=== PATIENT | male | born 1960 | race Caucasian/White ===

== ENCOUNTER 2021-12-12 09:32 | Emergency (ER) | payer OTHER, SELFPAY ==
[2021-12-12 09:57] VITALS: BP 138/84; PULSE 67; RESP 18; TEMP 36.8; O2SAT 97; BMI 41.8
[2021-12-12 10:54] LABS: Appearance Urine Clear (Clear); Bilirubin Urine Negative (Negative); Blood Urine 1+ (Negative); Color Urine Yellow (Yellow); Glucose Urine Negative (Negative); Ketones Urine Negative (Negative); Leukocyte Esterase Urine Negative (Negative); Nitrite Urine Negative (Negative); Protein Urine Negative (Negative); Specific Gravity Urine 1.015 (1.000-1.030); Urobilinogen Urine 0.2 (0.2-1.0); pH Urine 5.5 (5.0-8.5)
[2021-12-12 11:04] LABS: RBC Urine 0-2 (0-2); Squamous Epithelial Cell Urine Few (None-Few); WBC Urine 0-2 (0-5)
--- NOTE | 2021-12-12 11:19 | CRLHL7_ITS ---
For Patients: As a result of the Century Cures Act, medical imaging exams and procedure reports are released immediately into your electronic medical record. You may view this report before your referring provider. If you have questions, please contact your health care provider. Indication: Right testicular tenderness. Technique: Ultrasound of the scrotum and contents. Sonographic kaye-scale images were obtained with spectral and color Doppler waveform and spectral waveform analysis of the testicles. Comparison: None. Findings: Bother testicles are normal in size and echotexture. No masses. No suspicious calcifications. Arterial and venous color Doppler blood flow and spectral waveforms are present in both testicles. Epididymis: Unremarkable bilaterally. Normal blood flow. Other: Small right-sided hydrocele. No sign of varicocele. Scrotal wall is normal. Mildly enlarged right inguinal lymph node present. Impression: Small right-sided hydrocele and a mildly enlarged right inguinal lymph node are present. Otherwise unremarkable exam. No sign of torsion or inflammation. Dictated by Bao Lockett MD @ 12/12/2021 12:58:57 PM (Electronically Signed)
--- NOTE | 2021-12-12 11:21 | ED.GENADULT ---
HPI - General Adult General Time Seen by Provider: 11:21 Date Seen: 12/12/21 Chief complaint: Flank Pain Stated complaint: Lower right side absominal pain Time Seen by Provider: 12/12/21 11:10 Source: patient Mode of arrival: ambulatory Limitations: no limitations History of Present Illness HPI narrative: Delonte is a 7-year-old male past medical history includes hypertension, depression, diabetes mellitus type 2 presents emerged department with I a private car with some right lower flank and testicular pain. Patient states he got up in Saturday morning and developed right testicle pain. patient states he has had a over the last 10 year, feels is worse with movement, denies any dysuria, hematuria, increased urinary frequency, denies any penile discharge. It continued throughout the day, worse with bending over, his bowel movements every 3 days, he does 3 constipation, he has not been taking anything for, Saturday evening he felt like he was flushed, having a fever. patient had hematuria in the past, treated for a Uti at that time. Denies any nausea vomiting, no history of any kidney stones in the past, no history of any testicular cancer in the family. The pain continued is a dull ache, called Clinic and instructed him to come to the emergency department. is not had any upper respiratory complaints, denies any chest pain or shortness of breath. pain is worse with ambulation. no other concerns at this time. Related Data Home Medications Medication Instructions Recorded Confirmed aspirin 81 mg capsule 81 mg PO DAILY 12/12/21 12/12/21 atorvastatin 40 mg tablet 40 mg PO 12/12/21 bupropion HCl 200 mg tablet,12 hr 200 mg PO 12/12/21 sustained-release lisinopril 20 1 tab 12/12/21 mg-hydrochlorothiazide 25 mg tablet metformin 1,000 mg tablet 1,000 mg 12/12/21 paroxetine HCl 40 mg tablet 40 mg PO 12/12/21 Allergies Allergy/AdvReac Type Severity Reaction Status Date / Time No Known Drug Allergies Allergy Verified 12/12/21 10:05 Review of Systems Status of ROS: Reports: 10 or more systems reviewed and unremarkable except as noted in History and below Exam Narrative: Exam Narrative: General: NAD, sitting comfortably HEENT: pupils equal round reactive to light, extraocular muscles intact neck: supple full range of motion Heart: NSR, S1S2 lungs: clear to auscultation bilateral abdomen: obese, bowel sounds present, minimal tenderness to the right flank muscle skeletal: mild right CVA tenderness genitourinary: tender to palpation the posterior scrotum in the area of the epididymis, testicle is soft no appreciable hydrocele or mass, no redness or warm. no appreciable inguinal hernia. cremaster reflex present, normal vertical lie bilaterally. no Prehn sign. neuro: alert awake and oriented x3 Const: Vital Signs, click to edit/add: Vital Signs - 24 hr 12/12/21 09:57 Temperature 98.3 F Pulse Rate [Right Pulse Oximeter] 67 Respiratory Rate 18 Blood Pressure [Ri ght Upper Arm] 138/84 Pulse Oximetry 97 Oxygen Delivery Me thod Room Air Course Course Hospital Course: 11:15 AM: AIDET perform, vitals are normal, workup will include urinalysis and urine culture, will obtain basic labs including CBC, CRP, CMP, will also obtain a US scrotum, patient wants nothing for pain at this time. differential diagnosis include but not limited to renal calculi, pyelonephritis, epididymitis, constipation as well as testicular torsion or testicular cancer. Reevaluation(s) Reevaluation #1: patient updated on the imaging, lab and urinalysis, results, imaging showed IMPRESSION: CT abdomen and pelvis without contrast: Punctate right intrarenal nonobstructing calculus. No ureteral calculus or hydronephrosis. Colonic diverticulosis without evidence of acute diverticulitis. Small hiatal hernia. No evidence of acute intra-abdominal process on this noncontrast CT. Small-moderate sized fat containing umbilical hernia. US Scrotum: Impression: Small right-sided hydrocele and a mildly enlarged right inguinal lymph node are present. Otherwise unremarkable exam. No sign of torsion or inflammation. Time: 13:17 Vital Signs Vital signs: Initial Vital Signs Temperature 98.3 F 12/12/21 09:57 Temperature Source Temporal Artery Scan 12/12/21 09:57 Pulse Rate 67 12/12/21 09:57 Pulse Rhythm 12/12/21 09:57 Respiratory Rate 18 12/12/21 09:57 Blood Pressure 138/84 12/12/21 09:57 Blood Pressure Mean 102 12/12/21 09:57 Blood Pressure Position Sitting 12/12/21 09:57 Pulse Oximetry 97 12/12/21 09:57 Oxygen Delivery Method 12/12/21 09:57 Vital Signs Temperature 98.3 F 12/12/21 09:57 Pulse Rate 67 12/12/21 09:57 Respiratory Rate 18 12/12/21 09:57 Blood Pressure 138/84 12/12/21 09:57 Pulse Oximetry 97 12/12/21 09:57 Oxygen Delivery Method 12/12/21 09:57 Temperature 98.3 F 12/12/21 09:57 Pulse Rate 67 12/12/21 09:57 Respiratory Rate 18 12/12/21 09:57 Blood Pressure 138/84 12/12/21 09:57 Pulse Oximetry 97 12/12/21 09:57 Oxygen Delivery Method 12/12/21 09:57 Medical Decision Making Lab Data Labs: Lab Results 12/12/21 12/12/21 12/12/21 Range/Units 10:41 12:17 12:17 WBC 7.04 (4.50-11.00) K/uL RBC 5.06 (4.30-5.90) m/uL Hgb 15.0 (13.5-17.5) gm/dL Hct 44.1 (37.0-53.0) % MCV 87 (80-100) fL MCH 30 (26-34) pg MCHC 34 (32-36) gm/dL RDW Coeff of Rebecca 13.0 (11.5-15.5) % Plt Count 250 (140-440) K/uL Neut % (Auto) 59.7 (42.0-72.0) % Lymph % (Auto) 27.8 (20-44) % [place] % (Auto) 10.8 (0.0-11.0) % Eos % (Auto) 1.1 (0.0-7.0) % Baso % (Auto) 0.3 (0.0-3.0) % Neut # (Auto) 4.20 (1.7-7.0) K/uL Lymph # (Auto) 1.96 (0.90-2.90) K/uL [place] # (Auto) 0.80 (0.00-0.90) K/UL Eos # (Auto) 0.08 (0.00-0.50) K/uL Baso # (Auto) 0.02 (0.00-0.30) K/uL Abs Immat Gran (auto) 0.02 (0.00-0.30) K/uL Sodium 138 (135-149) mmol/L Potassium 4.1 (3.6-5.1) mmol/L Chloride 101 (96-114) mmol/L Carbon Dioxide 28 (20-32) mmol/L BUN 16 (7-30) mg/dL Creatinine 1.1 (0.5-1.5) mg/dL Estimated Creat Clear 76.06 Estimated GFR 77 ml/min Glucose 87 (60-115) mg/dL Calcium 9.7 (8.4-10.6) mg/dL Total Bilirubin 0.6 (0.1-1.5) mg/dL AST 36 H (12-35) U/L ALT 45 (4-50) U/L Alkaline Phosphatase 84 (40-150) U/L C-Reactive Protein < 0.5 L (0.5-1.0) mg/dL Total Protein 7.9 (6.0-8.3) g/dL Albumin 4.7 (3.3-5.0) g/dL Urine Color Yellow (Yellow) Urine Appearance Clear (Clear) Urine pH 5.5 (5.0-8.5) Ur Specific [place] 1.015 (1.000-1.030) Urine Protein Negative (Negative) Urine Glucose (UA) Negative (Negative) Urine Ketones Negative (Negative) Urine Blood 1+ A (Negative) Urine Nitrite Negative (Negative) Urine Bilirubin Negative (Negative) Urine Urobilinogen 0.2 (0.2-1.0) Ur Leukocyte Esterase Negative (Negative) Urine RBC 0-2 (0-2) Urine WBC 0-2 (0-5) Ur Squamous Epith Cells Few (None-Few) Urine Bacteria None (None) Discharge Plan Discharge Clinical Impression: Inguinal adenopathy, Hydrocele, right Patient Disposition: Home, Self-Care Condition: Improved Instructions: Hydrocele (ED) Additional Instructions: To continue with Motrin 400-600 mg every 4-6 hours, Tylenol 1000 mg every 4-6 hours, extra scotal support as well, to follow up with primary care provider in the next 7-10 days. Activity Level: Activity as Tolerated Prescriptions: No Action atorvastatin 40 mg tablet 40 mg PO metformin 1,000 mg tablet 1,000 mg Label Comments: TAKE ONE TABLET BY MOUTH TWICE DAILY WITH MEALS lisinopril-hydrochlorothiazide 20-25 mg tablet 1 tab paroxetine HCl 40 mg tablet 40 mg PO Label Comments: TAKE ONE TABLET BY MOUTH DAILY bupropion HCl 200 mg tablet sustained-release 12 hr 200 mg PO aspirin 81 mg capsule 81 mg PO DAILY Follow Up/Referrals: Alonso Gomez MD [Primary Care Provider] - Stand Alone Forms: Legal [employer] Info Instructions
--- NOTE | 2021-12-12 11:31 | CRLHL7_ITS ---
For Patients: As a result of the Century Cures Act, medical imaging exams and procedure reports are released immediately into your electronic medical record. You may view this report before your referring provider. If you have questions, please contact your health care provider. INDICATION: Right flank pain TECHNIQUE: CT abdomen and pelvis without contrast COMPARISON: None. FINDINGS: Kidney/ureters: Kidneys are normal in caliber. Punctate right intrarenal calculus. No ureteral calculus. No hydronephrosis. No sign of perinephric inflammation. Ureters are normal in caliber. Liver/gallbladder/bile ducts: The liver is normal in size, shape and attenuation. Gallbladder is normal without visualized stones or inflammation. No biliary dilatation. Spleen/pancreas/adrenal glands: The spleen, adrenal glands and pancreas are within normal limits. GI tract: Tiny hiatal hernia. No bowel obstruction or evidence of inflammation. Colonic diverticulosis without evidence of acute diverticulitis. Normal appendix. Abdominal wall/omentum/peritoneum: No free air or significant free fluid. No mass or inflammation. Small-moderate size fat containing umbilical hernia with sagittal defect measuring 8 mm. Lymph nodes: No lymphadenopathy. Pelvis: Unremarkable pelvis. Lower chest: Unremarkable. Bones: Mild multilevel degenerative spondylosis without acute fracture or aggressive osseous lesion. IMPRESSION: Punctate right intrarenal nonobstructing calculus. No ureteral calculus or hydronephrosis. Colonic diverticulosis without evidence of acute diverticulitis. Small hiatal hernia. No evidence of acute intra-abdominal process on this noncontrast CT. Small-moderate sized fat containing umbilical hernia. Please note that all CT scans at this facility use dose modulation, iterative reconstruction, and/or weight-based dosing when appropriate to reduce radiation dose to as low as reasonably achievable. Dictated by Shad Tamez MD @ 12/12/2021 12:47:01 PM (Electronically Signed)
[2021-12-12 12:44] LABS: Basophils Absolute Auto 0.02 K/uL (0.00-0.30); Basophils Percent Auto 0.3 % (0.0-3.0); Eosinophils Absolute Auto 0.08 K/uL (0.00-0.50); Eosinophils Percent Auto 1.1 % (0.0-7.0); Hematocrit 44.1 % (37.0-53.0); Immature Granulocytes Abs Auto 0.02 K/uL (0.00-0.30); Lymphocytes Absolute Auto 1.96 K/uL (0.90-2.90); Lymphocytes Percent Auto 27.8 % (20-44); Mean Corpuscular HGB Conc 34 gm/dL (32-36); Mean Corpuscular Hemoglobin 30 pg (26-34); Mean Corpuscular Volume 87 fL (80-100); Monocytes Percent Auto 10.8 % (0.0-11.0); Neutrophils Percent Auto 59.7 % (42.0-72.0); Platelet Count* 250 K/uL (140-440); Red Blood Count 5.06 m/uL (4.30-5.90); White Blood Count* 7.04 K/uL (4.50-11.00)
[2021-12-12 12:58] LABS: Slide Review Reflex No
[2021-12-12 13:01] LABS: Albumin* 4.7 g/dL (3.3-5.0); Chloride* 101 mmol/L (96-114)
[2021-12-12 13:02] LABS: Potassium* 4.1 mmol/L (3.6-5.1); Sodium* 138 mmol/L (135-149)
[2021-12-12 13:04] LABS: Bilirubin Total* 0.6 mg/dL (0.1-1.5); Creatinine* 1.1 mg/dL (0.5-1.5); Est. Creatinine Clearance* 76.06; Estimated Glomerular Filt Rate 77 ml/min
[2021-12-12 13:05] LABS: Alanine Aminotransferase* 45 U/L (4-50); Alkaline Phosphatase* 84 U/L (40-150); Aspartate Amino Transferase* 36 U/L (12-35); Blood Urea Nitrogen* 16 mg/dL (7-30); Carbon Dioxide* 28 mmol/L (20-32); Glucose* 87 mg/dL (60-115); Total Protein* 7.9 g/dL (6.0-8.3)
[2021-12-12 13:06] LABS: Calcium* 9.7 mg/dL (8.4-10.6)
[2021-12-12 13:08] LABS: C Reactive Protein* < 0.5 mg/dL (0.5-1.0)
== END 2021-12-12 13:42 | disposition home or self-care (01) ==
PROVIDERS: Emergency Provider Student in an Organized Health Care Education/Training Program; PCP Family Medicine
DX: R59.0 Localized enlarged lymph nodes (principal); N43.3 Hydrocele, unspecified
CPT/HCPCS: 36415; 74176; 76870; 80053; 81001; 81003; 81015; 85025; 86140; 87086; 93976; 99283; 99284

== ENCOUNTER 2022-12-05 08:25 | Day surgery (SDC) | payer OTHER, SELFPAY ==
[2022-12-05] VITALS (19 sets, daily range): BP systolic 104–181; BP diastolic 75–97; PULSE 63–73; RESP 16–24; TEMP 36.1–36.4; O2SAT 91–97; BMI 43.9
[2022-12-05] MEDS: LACTATED RINGERS 1000 ML 1,000 ML 100 ML IV ×2 (08:00→11:14)
[2022-12-05] MEDS: SODIUM CHLORIDE 0.9 % (FLUSH) 10 ML SYRINGE IVF (09:21)
--- NOTE | 2022-12-05 09:57 | W.PM.H&PU ---
History & Physical Update History & Physical Update H&P Reviewed and patient assessed: No changes noted
[2022-12-05] MEDS: MIDAZOLAM HCL 1 MG/ML inj IVP (10:05)
[2022-12-05] MEDS: fentaNYL 100 MCG/2 ML inj IVP (10:05)
--- NOTE | 2022-12-05 10:38 | PM.ORPRC ---
Procedure Note Date of procedure: 12/05/22 Procedure: PREOPERATIVE DIAGNOSES: 1. Left shoulder rotator cuff tear. 2. Left shoulder subacromial bursitis POSTOPERATIVE DIAGNOSES: 1. Left shoulder type 2 SLAP tear 2. Left shoulder subacromial bursitis. 3. Left shoulder rotator cuff tendonitis NAME OF OPERATION: 1. Left shoulder arthroscopic biceps tenotomy 2. Left shoulder arthroscopic bursectomy, subacromial decompression/partial acromioplasty. 3. Left shoulder limited glenohumeral debridement SURGEON: Chi Garvin MD PHLEBOTOMY INSTRUCTOR: Gonzalez MARTINEZ. An ice cream freezer assistant was critical for this case to aide in patient positioning, suture manipulation, arm positioning, instrument positioning, and closure. ANESTHESIA: General plus preoperative supraclavicular block. IMPLANTS: None COMPLICATIONS: None ESTIMATED BLOOD LOSS: 5 mL INDICATIONS: The patient is a pleasant, 62 year old male who has experienced progressively worsening left shoulder pain over the past several months. Physical exam and imaging were consistent with a rotator cuff tear. Given these findings, as well as the weakness and pain, and failure to improve with nonoperative management, recommendation was made for surgery. Prior to surgery, the risks and benefits of the procedure were discussed with patient and informed consent was obtained. FINDINGS: Exam under anesthesia revealed stable shoulder with full range of motion. The diagnostic arthroscopy revealed type 2 tearing of the superior labrum With degenerative fraying of the anterior superior, superior, and posterior superior labrum. Anterior, posterior, inferior labrum were intact. Biceps tendon was intact but labral anchor was unstable. Normal appearing cartilage of the glenoid and humeral head. The Subscapularis, supraspinatus, infraspinatus tendons were all intact with no evidence of tearing on the bursal or articular surfaces. No loose bodies were identified within the pouch or subscapularis recess. PROCEDURE: Following a thorough discussion of risks, benefits, and alternatives, consent was obtained and the operative shoulder was marked. A supraclavicular nerve block was performed by anesthesia staff in preop holding. The patient was brought to the operating room and placed supine positionon the operating table. Induction of anesthesia was completed, and patient was given 3 g IV Ancef preoperatively for prophylaxis. Patient was placed into the beach chair position. Head was placed in padded apple packing header in neutral alignment, and all bony prominences were well padded. The operative shoulder and upper extremity were prepped and draped in the appropriate sterile fashion using ChloraPrep. A surgical time-out was performed confirming patient identity, surgical site, and procedure. The glenohumeral joint was injected with 40 mL of normal saline using an 18g spinal needle from a posterior approach. Posterior portal was established. Anterior portal was established after localization with a spinal needle and a 7.0 mm cannula was placed here. Diagnostic arthroscopy was then performed with findings as noted above. Attention was then directed to the superior labrum. Frayed portions of the anterior superior, superior, and posterior labrum were debrided using motorized shaver. After debridement, the biceps anchor was probed and was confirmed to be unstable. Decision was made to proceed with arthroscopic biceps tenotomy which was performed using arthroscopic scissors. The articular side of the rotator cuff was inspected and was noted be intact. A spinal needle was used to place a PDS marking stitch through the anterior supraspinatus, so that it could be localized from the subacromial space. The camera was then moved into the subacromial space. A lateral portal was established after localization with a spinal needle. Subacromial bursectomy was performed using arthroscopic shaver and the radiofrequency ablator. Acromioplasty was performed removing bone spur off the anterior aspect of the acromion. This was performed using the bone-cutting shaver placed through the posterior portal While viewing through the lateral portal. The bursal side of the cuff was thoroughly inspected and was noted to be intact. The cuff was probed and no thin or deficient portions of cuff were identified. The probe was then placed through the previously-made spinal needle hold in cuff was then again inspected from the glenohumeral joint and was confirmed to be intact. Arthroscopic instruments and cannula were removed. Excess fluid was drained, portal sites were closed with 3-0 nylon simple interrupted sutures. Dressings were applied. Sling was applied. The patient was awoken from anesthesia and transferred to the PACU in stable condition. PLAN: 1. Discharged to home day of surgery. 2. Ice for pain and swelling. 3. Tylenol and oxycodone as needed for pain control. 4. Sling as needed for comfort. -Remove sling several times daily for pendulum exercises finger, wrist, and elbow range of motion. 5. Follow-up in orthopedic clinic in 10-14 days for wound check and suture removal. 6. Will initiate formal physical therapy 2 weeks postoperatively per the accelerated shoulder surgery/debridement rehabilitation protocol.
[2022-12-05] MEDS: EPINEPHrine 1 MG in SODIUM CHLORIDE IRRIG SOLUTION 3,000 ML 3003 MG IRRIGATION ×2 (10:55→11:00)
[2022-12-05] MEDS: CEFAZOLIN 2 GM INJ IVP (11:02)
--- NOTE | 2022-12-05 11:04 | W.PM.NB ---
Nerve Block Nerve Block Time Seen by Provider: 10:09 Date Seen: 12/05/22 Type of block requested by surgeon for post-operative analgesia: supraclavicular Side: left Time out performed: Yes Verification of patient name: Yes Verification of date of : Yes Site marking: site marked Name of person performing procedure: Gaudencio Continuous monitoring Was continuous monitoring of O2 sat, B/P, cardiac exercise specialist, recorded every 15 minutes?: Yes Procedure Checklist: sterile prep, needles and gloves Ultrasound guided. Images saved: Yes Medications given in 5ml increments after negative aspiration: Ropivicaine %: 0.5 mL: 20 Needle gauge: 22 Decadron (mg): 10 Precedex (mcg): 25 Patient tolerated procedure well: Yes Block Charges Block Charge (with Pro Fee): Brachial Plexus Use of Ultrasound Machine for Block: Yes- US Guidance/pain block
--- NOTE | 2022-12-05 11:04 | W.ANESCHARGE ---
Anesthesia Charges Start Date/Time Anesthesia Start Date: 12/05/22 Anesthesia Start Time: 10:37 Stop Date/Time Anesthesia Stop Date: 12/05/22 Anesthesia Stop Time: 12:28
--- NOTE | 2022-12-05 12:43 | W.ANESCHARGE ---
Anesthesia Charges Start Date/Time Anesthesia Start Date: 12/05/22 Anesthesia Start Time: 10:37 Stop Date/Time Anesthesia Stop Date: 12/05/22 Anesthesia Stop Time: 12:28
[2022-12-05] MEDS: fentaNYL 100 MCG/2 ML inj 50 MCG IVP (13:07)
--- NOTE | 2022-12-05 13:28 | SUR.PHASEI ---
patient met discharge criteria per anesthesia
== END 2022-12-05 14:55 | disposition home or self-care (01) ==
PROVIDERS: PCP Family Medicine; Visit Provider Orthopaedic Surgery
PROC: (CPT 29805; principal; 2022-12-05 11:00)
DX: S43.432A Superior glenoid labrum lesion of left shoulder, initial encounter (principal); M75.52 Bursitis of left shoulder; G89.18 Other acute postprocedural pain
CPT/HCPCS: 29826; 29824; 29822; 01630; 64415; 76942; 82962; J0171; J0330; J0665; J0690; J1100; J2250; J2405; J2704; J3010; J3490; J7120; L3670

== ENCOUNTER 2023-02-21 08:15 | Outpatient (RCR) | payer OTHER, SELFPAY | END 2023-05-21 11:27 | disposition home or self-care (01) | PROVIDERS: PCP Family Medicine; Visit Provider Orthopaedic Surgery | DX: M75.122 Complete rotator cuff tear or rupture of left shoulder, not specified as traumatic (principal); Z98.890 Other specified postprocedural states; M25.512 Pain in left shoulder; Z47.89 Encounter for other orthopedic aftercare; Z51.89 Encounter for other specified aftercare | CPT/HCPCS: 97110; 97140; 97161 ==